=== PATIENT | male | born 1975 | race Caucasian/White ===

== ENCOUNTER 2023-04-19 15:29 | Inpatient (IN) ==
[2023-04-19] MEDS ORDERED: ALUMINUM/MAGNESIUM SUSP 30 ML UDC PO STA (15:51)
[2023-04-19 16:39] LABS: Basophils # (auto) 0.05 K/uL (0.00-0.20); Basophils % (auto) 0.4 %; Eosinophils % (auto) 0.8 %; Hematocrit (blood only) 48.4 % (42.0-52.0); Hemoglobin 16.4 g/dl (14.0-18.0); Immature Granulocytes # (auto) 0.04 K/uL (0.01-0.20); Immature Granulocytes % (auto) 0.3 %; Lymphocytes # (auto) 2.68 K/uL (1.20-3.40); Lymphocytes % (auto) 20.1 %; Mean Corpuscular Hgb Conc 33.9 g/dL (32.0-36.0); Mean Corpuscular Volume 94.3 fL (80.0-100.0); Mean Platelet Volume 10.4 fL (9.4-12.4); Monocytes # (auto) 1.18 K/uL (0.11-0.59); Monocytes % (auto) 8.9 %; Neutrophils # (auto) 9.28 K/uL (1.40-6.50); Neutrophils % (auto) 69.5 %; Platelet Count 249 K/uL (130-400); RDW Coefficient of Variation 12.3 % (11.5-14.5); RDW Standard Deviation 43.4 fL (36.4-46.3); Red Blood Count 5.13 M/uL (4.70-6.10); White Blood Count 13.33 K/ul (4.8-10.8)
--- NOTE | 2023-04-19 16:50 | Emergency Department Note ---
Impression & Plan Pancreatitis ED Provider Note CHIEF COMPLAINT: Gastric pain HISTORY OF PRESENTING ILLNESS: This 47-year-old male patient presents to the emergency department for evaluation of epigastric abdominal pain that started abruptly at midnight. He is also having bloating along with the pain. Symptoms have not improved throughout the day. No nausea or vomiting. He had a normal bowel movement today with no change in the symptoms. Was able to eat yogurt and pretzels this morning, but has not eaten anything else. He denies any reflux symptoms. Has not taken any reflux medication or antacids. Denies chest pain or shortness of breath. Rates his discomfort as 5/10. He had [employer] 2 days ago, but had not symptoms after the [employer]. Had tomato soup, grilled cheese, and 1 glass of wine last night that he typically eats/drinks without problems. No other changes in his diet or activity recently. Denies fevers, cough, or URI symptoms. Denies urinary symptoms. Denies any recent changes in his BMs and denies any diarrhea or constipation. Has not taken anything for the symptoms yet. Has a history of HTN, but no other heart problems. Denies family history of heart problems. No history of abdominal problems other than fatty liver. ALT was 115 in June 2022 with other LFTs normal. His RUQ US at that time showed hepatic steatosis, but otherwise normal. Had a colonoscopy in 2021 that was normal. No previous EGD. Has never had pancreatitis before. He drinks 2-3 glasses of wine or beer a week. No more than 2 a day on holidays or special occasions. Had 2 glasses of wine on Sat and 1 glass of wine on . He has never had elevated triglycerides before. REVIEW OF SYSTEMS: See HPI for pertinent positives and pertinent negatives. ALLERGIES: Bactrim MEDICATIONS: Losartan, antihistamines prn (usually in the spring), CPAP machine PAST MEDICAL HISTORY: HTN, allergic rhinitis, sleep apnea, fatty liver PHYSICAL EXAM: VITALS: Vitals are noted on the nurse's note and reviewed by myself. GENERAL: Non toxic, no acute distress, non-diaphoretic. SKIN: Capillary refill <2 sec. EYES: PERRLA. EOMI. Conjunctivae without injection, sclerae without icterus. NOSE: Patent without discharge. MOUTH: Mucous membranes moist. Uvula midline. Airway patent. NECK: Supple without nuchal rigidity. HEART: Regular rate and rhythm without murmurs gallops or rubs. LUNGS: Clear to auscultation bilaterally without wheezes, rales or rhonchi. No retractions or accessory muscle use. ABDOMEN: Positive bowel sounds x 4. Normal tympanic percussion. Soft, tender to the palpation mainly in the epigastric area, but also mild right upper quadrant tenderness. No masses or organomegaly. No CVA tenderness. Plunkett sign negative. No guarding or rebound tenderness. No focal RLQ or LLQ tenderness. MUSCULOSKELETAL: No gross musculoskeletal defects. NEURO: Patient was alert and oriented. No focal neurological deficits. DIFFERENTIAL DIAGNOSIS: Differential diagnosis includes hepatitis, pancreatitis, cholecystitis, cholelithiasis, appendicitis, kidney stone, pyelonephritis, UTI, gastritis, gastroenteritis, mesenteric adenitis, obstruction, constipation, hernia, abdominal abscess, perforation, diverticulitis, IBD, ischemic colitis, abdominal aortic aneurysm, testicular torsion, prostatitis, or others. ED COURSE AND MEDICAL DECISION MAKING: MONITOR: Continuous pin sorter and bagger: Order was placed for continuous pin sorter and bagger. Patient was placed on the pin sorter and bagger and continuous pulse ox. Patient was noted to be in normal sinus rhythm at an initial rate of 78 bpm per my interpretation. EKG: EKG was interpreted by myself as normal sinus rhythm at 69 bpm with no acute ST or T wave changes. MEDICATIONS GIVEN: 1 L normal saline solution bolus. GI cocktail. Pepcid 20 mg IV. Tylenol 1000 mg p.o. Toradol 10 mg IV. INTERPRETATION OF LABS: I interpreted the labs with full lab results as below in the lab section of this note. White blood cell count elevated at 13.33. Hemoglobin normal at 16.4. Platelet count normal at 249. ALT elevated at 66, but this is improved from 115 and June 2022. CMP otherwise normal. High- sensitivity troponin x 2 were normal. Lipase was elevated at 893. Urinalysis was negative. INTERPRETATION OF IMAGING: Imaging studies were interpreted by myself and read by radiology as per the imaging section of this note. Chest x-ray was negative for acute cardiopulmonary etiology. CT scan of the abdomen pelvis with IV contrast showed findings compatible with pancreatitis with reactive duodenal wall thickening and fat stranding. No acute peripancreatic collections or necrosis is seen. Primary duodenitis is considered less likely. EXTERNAL RECORDS REVIEWED: I reviewed the patient's laboratory studies on his phone from June 2022 with an ALT of 115, but otherwise normal LFTs. His triglycerides and cholesterol panel were normal at that time as well. Right upper quadrant ultrasound in June 2022 showed hepatic steatosis, but otherwise normal. CONSULTATIONS: On-call hospitalist MDM SUMMARY: I examined the patient. An IV lock was placed and labs were drawn. EKG and high-sensitivity troponin x 2 were negative and I do not suspect ACS. Chest x- ray was negative. Patient was given a GI cocktail and IV Pepcid without improvement of his symptoms. He was then given IV Tylenol and Toradol with improvement of his symptoms, but not resolution of his symptoms. He declined any additional pain medication while in the emergency department. He was hydrated with 1 L normal saline solution bolus. ALT was elevated, but improved from June 2022. White blood cell count elevated at 13.33, lipase was elevated at [address] scan was consistent with acute pancreatitis. No evidence for gallstones or gallbladder etiology on the CT scan of the abdomen and pelvis. The patient drinks wine socially and with dinners 2- 4 times a week. Lipid panel was normal in June 2022. The patient will require admission for further evaluation and treatment of his acute pancreatitis. I spoke with the on-call hospitalist who agreed to admit the patient for further management. Please refer to their dictation for further details. The patient's care was transferred in stable condition. DIAGNOSIS: Acute pancreatitis Past Med/Surg History Social History (System 03/05/22 @ 10:37 by Tonya Ramirez) Smoking Status: Never smoker Hx Alcohol Use: Yes Alcohol type: beer and wine Hx Substance Use: No Preferred Language: Turkmen Communication Ability: Effective Vineyardist Required: No Beliefs That Will Affect Care: None Current Living Situation: Family Other Information That Helps Us Care for You: No Feels Safe at Home: Yes Safety Concerns: Feels Safe At This Time Assistive Devices: CPAP and Glasses Allergies Allergies Allergy/AdvReac Type Severity Reaction Status Date / Time bactrim Allergy Unknown Rash Uncoded 03/05/22 10:37 Home Meds Home Medications Medication Instructions Recorded Confirmed fexofenadine 180 mg tablet 180 mg PO PRN allergies 02/05/22 04/19/23 losartan 100 mg tablet 100 mg PO QAM 02/05/22 04/19/23 doxycycline hyclate 100 mg capsule 100 mg PO DIRECTED PRN Other 04/19/23 04/19/23 psyllium 1 packet PO DIRECTED 04/19/23 04/19/23 Previous Rx's Medication Instructions Recorded Auto Titrating CPAP #1 ea 02/14/22 Results & Data (ED) Vital Signs Vital Signs - 24 hr 04/19/23 15:34 04/19/23 17:29 Temperature 36.6 C 36.6 C Temperature Source Temporal Artery Scan Temporal Artery Scan Pulse Rate 87 Respiratory Rate 20 20 Respiratory Effort / Characteristics Non-Labored Spontaneous Non-Labored Spontaneous Respiratory Depth Normal Normal Blood Pressure 164/85 H Blood Pressure [Right Arm] 124/75 Blood Pressure Mean 111 Blood Pressure Mean [Right Arm] 91 Blood Pressure Position [Right Arm] Semi-fowlers Pulse Oximetry 99 99 Oxygen Delivery Method Room Air Room Air Sepsis Recent Fever Within 48 Hours No Sepsis New/Unexplained Change in Mental Status No Sepsis Action Taken by Nursing No Action Required Laboratory Data 04/19/23 16:20 04/19/23 16:20 Lab Results 04/19/23 04/19/23 04/19/23 Range/Units 16:20 17:18 18:27 WBC 13.33 H (4.8-10.8) K/ul RBC 5.13 (4.70-6.10) M/uL Hgb 16.4 (14.0-18.0) g/dl Hct 48.4 (42.0-52.0) % MCV 94.3 (80.0-100.0) fL MCH 32.0 (25.0-34.0) pg MCHC 33.9 (32.0-36.0) g/dL RDW Std Deviation 43.4 (36.4-46.3) fL RDW Coeff of Eduardo 12.3 (11.5-14.5) % Plt Count 249 (130-400) K/uL MPV 10.4 (9.4-12.4) fL Immature Gran % (Auto) 0.3 % Neut % (Auto) 69.5 % Lymph % (Auto) 20.1 % [place] % (Auto) 8.9 % Eos % (Auto) 0.8 % Baso % (Auto) 0.4 % Neut # (Auto) 9.28 H (1.40-6.50) K/uL Lymph # (Auto) 2.68 (1.20-3.40) K/uL [place] # (Auto) 1.18 H (0.11-0.59) K/uL Eos # (Auto) 0.10 (0.00-0.50) K/uL Baso # (Auto) 0.05 (0.00-0.20) K/uL Immature Gran # (Auto) 0.04 (0.01-0.20) K/uL Sodium 139 (136-145) mmol/L Potassium 3.9 (3.5-5.1) mmol/L Chloride 101 (98-107) mmol/L Carbon Dioxide 30 (21-32) mmol/L Anion Gap 8 (3-11) BUN 10 (6-23) mg/dl Creatinine 0.84 (0.6-1.4) mg/dl Est Cr Clr Drug Dosing 111.0 ml/min Est GFR ( Amer) 120.0 ml/min Est GFR (Non-Af Amer) 103.5 ml/min BUN/Creatinine Ratio 11.9 (10-20) Glucose 89 (70-99(Fasting)) mg/dl Calcium 9.5 (8.6-10.3) mg/dl Total Bilirubin 0.9 (0.2-1.0) mg/dl AST 31 (13-39) U/L ALT 66 H (7-52) U/L Alkaline Phosphatase 68 (34-104) U/L Troponin I High Sens 4.6 3.7 (0-20) pg/ml Total Protein 8.2 (6.0-8.3) gm/dl Albumin 4.9 (3.4-5.0) gm/dl Globulin 3.3 (2.5-4.0) gm/dl Albumin/Globulin Ratio 1.5 (0.9-2) Lipase 893 H (11-82) U/L Urine Color Yellow Urine Appearance Clear (Clear) Urine pH 7.5 (4.5-7.5) Ur Specific [place] 1.020 (1.000-1.030) Urine Protein Negative (Negative) Urine Glucose (UA) Negative (Negative) Urine Ketones Negative (Negative) Urine Blood Negative (Negative) Urine Nitrite Negative (Negative) Urine Bilirubin Negative (Negative) Urine Urobilinogen Negative (Negative) Ur Leukocyte Esterase Negative (Negative) Administered Medications Acetaminophen (Acetaminophen 325 Mg Tab) 650 mg PO Q4H PRN PRN Reason: pain/fever Stop: 05/19/23 22:18 Last Admin: 04/19/23 23:02 Dose: 650 mg Documented By: ELODIA Enoxaparin Sodium (Enoxaparin Inj 40 Mg/0.4 Ml Syr) 40 mg SQ HS RIMA Stop: 05/19/23 22:18 Last Admin: 04/19/23 23:03 Dose: 40 mg Documented By: ELODIA Famotidine 20 mg/ Syringe 5 mls @ 2.5 mls/min IV BID RIMA Stop: 05/19/23 22:18 Last Admin: 04/19/23 23:03 Dose: 2.5 mls/min Documented By: ELODIA Lactated Ringer's (Lr) 1,000 mls @ 200 mls/hr IV .Q5H RIMA Stop: 05/19/23 22:18 Last Admin: 04/19/23 22:30 Dose: 200 mls/hr Documented By: ELODIA Discontinued Medications Acetaminophen (Acetaminophen 500 Mg Tab) 1,000 mg PO NOW STA Stop: 04/19/23 17:15 Last Admin: 04/19/23 17:58 Dose: 1,000 mg Documented By: SONAL Al Hydrox/Mg Hydrox/Simethicone (Aluminum/Magnesium Susp 30 Ml Udc) 15 ml PO NOW STA Stop: 04/19/23 15:52 Last Admin: 04/19/23 16:24 Dose: 15 ml Documented By: SRL Hydromorphone HCl (Hydromorphone Inj 0.5 Mg/0.5 Ml Syr) 0.5 mg IV NOW STA Stop: 04/19/23 21:02 Last Admin: 04/19/23 21:44 Dose: 0.5 mg Documented By: HALIMA Sodium Chloride (Nss) 1,000 mls @ 999 mls/hr IV .Q1H1M ONE Stop: 04/19/23 18:14 Last Infusion: 04/19/23 19:08 Dose: Infused Documented By: Admin: 04/19/23 17:58 Dose: 999 mls/hr Documented By: SONAL Famotidine (Pepcid 20mg Iv Push) 20 mg in 5 mls @ 2.5 mls/min IV NOW STA Stop: 04/19/23 17:15 Last Admin: 04/19/23 17:58 Dose: 2.5 mls/min Documented By: CAW Ioversol (Optiray 320 500ml) 87 ml IV ONCE ONE Stop: 04/19/23 18:04 Last Admin: 04/19/23 18:03 Dose: 87 ml Documented By: JAKY Ketorolac Tromethamine (Ketorolac Tromethamine 15 Mg/Ml Vial) 10 mg IV NOW ONE Stop: 04/19/23 18:36 Last Admin: 04/19/23 18:54 Dose: 10 mg Documented By: HALIMA Imaging Data Radiologist's Impression: Abdomen/Pelvis CT 04/19/23 17:14 CT abd pelvis IV con only CLINICAL HISTORY: epigastric and RUQ pain TECHNIQUE: Helical axial images of the abdomen and pelvis were obtained and displayed. Automated dose lowering techniques and/or adjustment according to patient size were utilized for this exam. This exam was performed with intravenous contrast. CT DOSE: 961.54 mGy.cm COMPARISON: None available at the time of this dictation. FINDINGS: Lower chest: No acute abnormality. Liver: Unremarkable. No focal lesions are seen. Gallbladder and biliary tree: No calcified gallstones. Normal caliber wall. No intra- or extrahepatic biliary ductal dilation. Pancreas: There is questionable minimal heterogeneity of the pancreatic head. Soft tissue stranding is seen about the pancreatic head but not the body or tail. Spleen: Unremarkable. Adrenals: Unremarkable. Kidneys and ureters: Unremarkable. Bladder: Unremarkable. Reproductive organs: Unremarkable. Bowel: The appendix is normal. Duodenal wall thickening is seen. Lymph nodes Retroperitoneal: Subcentimeter lymph nodes are noted. Pelvic: Unremarkable. Mesenteric: Unremarkable. Peritoneum: Fat stranding is seen in the right upper quadrant extending around the splenic flexure, duodenum, and pancreatic head. No drainable fluid collections are seen. No pneumoperitoneum. Vessels: Atherosclerotic calcifications are seen. Abdominal wall: Unremarkable. Bones: Degenerative changes in the visualized spine. IMPRESSION: Findings are compatible with history of pancreatitis with reactive duodenal wall thickening and fat stranding. No acute peripancreatic collections or necrosis is seen. Primary duodenitis is considered less likely. ACT 112: Negative or not required by law. Electronically signed by: Joe Sepulveda M.D. 04/19/2023 7:03 PM Chest X-Ray 04/19/23 17:14 XR chest 1V portable CLINICAL HISTORY: upper abdominal pain TECHNIQUE: Single frontal radiograph of the chest was obtained. Comparison: None available at the time of this dictation. FINDINGS: No lines and tubes are seen. The cardiomediastinal silhouette is normal. The lungs are clear. No evidence of pleural effusion or pneumothorax. IMPRESSION: No acute chest disease. ACT 112: Negative or not required by law. Electronically signed by: Joe Sepulveda M.D. 04/19/2023 6:05 PM Discharge Plan Visit Data Chief Complaint: Abdominal Pain Stated Complaint: GASTRIC PAIN ED Provider: Cayetano Kendrick ED Midlevel Provider: Billie Obando Discharge Problem: Pancreatitis Patient Disposition: Admitted As Inpatient Condition: Good Discharge Instructions Interventions: ED Discharge Assessment Last Done: 04/19/23 22:11 Discharge Problem: Pancreatitis Qualifiers: Chronicity: acute Pancreatitis type: unspecified pancreatitis type Acute pancreatitis complication: no infection or necrosis Qualified Code(s): K85.90 - Acute pancreatitis without necrosis or infection, unspecified
[2023-04-19 16:59] LABS: BUN Creatinine Ratio 11.9 (10-20); Calcium 9.5 mg/dl (8.6-10.3); Est GFR (Non-African American) 103.5 ml/min; Potassium 3.9 mmol/L (3.5-5.1)
[2023-04-19 17:03] LABS: Troponin I High Sensitivity 4.6 pg/ml (0-20)
[2023-04-19] MEDS ORDERED: SODIUM CHLORIDE 0.9% 1,000 ML IV ONE (17:14)
[2023-04-19] MEDS ORDERED: FAMOTIDINE 20MG IV PUSH 20 MG/5 ML SYR IV STA (17:14)
[2023-04-19] MEDS ORDERED: ACETAMINOPHEN 500 MG TAB PO STA (17:14)
[2023-04-19 17:23] LABS: Albumin Globulin Ratio 1.5 (0.9-2); Albumin Level 4.9 gm/dl (3.4-5.0); Bilirubin,Total 0.9 mg/dl (0.2-1.0); Globulin 3.3 gm/dl (2.5-4.0); Total Protein 8.2 gm/dl (6.0-8.3)
[2023-04-19 17:37] LABS: Appearance Urine Clear (Clear); Bilirubin Urine Negative (Negative); Blood Urine Negative (Negative); Color Urine Yellow; Glucose Urine UA Negative (Negative); Ketones Urine Negative (Negative); Leukocyte Esterase Urine Negative (Negative); Nitrite Urine Negative (Negative); Protein Urine Negative (Negative); Urobilinogen Urine Negative (Negative); pH Urine 7.5 (4.5-7.5)
[2023-04-19] MEDS ORDERED: OPTIRAY 320 500ml IV ONE (18:03)
--- NOTE | 2023-04-19 18:07 | XRay Report ---
XR chest 1V portable CLINICAL HISTORY: upper abdominal pain TECHNIQUE: Single frontal radiograph of the chest was obtained. Comparison: None available at the time of this dictation. FINDINGS: No lines and tubes are seen. The cardiomediastinal silhouette is normal. The lungs are clear. No evid ence of pleural effusion or pneumothorax. IMPRESSION: No acute chest disease. ACT 112: Negative or not required by law. Electronically signed by: Joe Sepulveda M.D. 04/19/2023 6:05 PM
[2023-04-19] MEDS ORDERED: KETOROLAC TROMETHAMINE 15 MG/ML VIAL IV ONE (18:35)
--- NOTE | 2023-04-19 19:06 | CT Scan Report ---
CT abd pelvis IV con only CLINICAL HISTORY: epigastric and RUQ pain TECHNIQUE: Helical axial images of the abdomen and pelvis were obtained and displayed. Automated dose lowering techniques and/or adjustment according to patient size were utilized for this exam. This e xam was performed with intravenous contrast. CT DOSE: 961.54 mGy.cm COMPARISON: None available at the time of this dictation. FINDINGS: Lower chest: No acute abnormality. Liver: Unremarkable. No focal lesions are seen. Gallbladder and biliary tree: No calcified gallstones. Normal caliber wall. No intra- or extrahepatic biliary ductal dilation. Pancreas: There is questionable minimal heterogeneity of the pancreatic head. Soft tissue stranding i s seen about the pancreatic head but not the body or tail. Spleen: Unremarkable. Adrenals: Unremarkable. Kidneys and ureters: Unremarkable. Bladder: Unremarkable. Reproductive organs: Unremarkable. Bowel: The appendix is normal. Duodenal wall thickening is seen. Lymph nodes Retroperitoneal: Subcentimeter lymph nodes are noted. Pelvic: Unremarkable. Mesenteric: Unremarkable. Peritoneum: Fat stranding is seen in the right upper quadrant extending around the splenic flexure, d uodenum, and pancreatic head. No drainable fluid collections are seen. No pneumoperitoneum. Vessels: Atherosclerotic calcifications are seen. Abdominal wall: Unremarkable. Bones: Degenerative changes in the visualized spine. IMPRESSION: Findings are compatible with history of pancreatitis with reactive duodenal wall thickening and fat s tranding. No acute peripancreatic collections or necrosis is seen. Primary duodenitis is considered l ess likely. ACT 112: Negative or not required by law. Electronically signed by: Joe Sepulveda M.D. 04/19/2023 7:03 PM
[2023-04-19] MEDS ORDERED: HYDROmorphone INJ 0.5 MG/0.5 ML SYR IV STA (21:01)
--- NOTE | 2023-04-19 21:04 | History & Physical Report ---
Date of Service April 19, 2023 Assessment & Plan (1) Pancreatitis: Plan: 47-year-old male with past medical history significant for obstructive sleep apnea on CPAP, hypertension, fatty liver, history of MRSA infection, seasonal allergies presents with epigastric abdominal pain started last night and found to have pancreatitis Acute pancreatitis Elevated lipase in 800s CT scan findings compatible with pancreatitis No gallstones on CAT scan LFTs okay except for ALT 66 Etiology unclear Will check lipid profile Placing on aggressive IV fluids LR@ 200 mill per hour N.p.o. IV antiemetics as needed IV pain meds as needed GI consult in a.m. Obstructive sleep apnea CPAP nightly Hypertension On losartan Will monitor DVT prophylaxis Lovenox Disposition Medical floor Full code History of Present Illness Chief Complaint: Abdominal pain Primary Care Provider: Jose Carlos Bermudez MD 47-year-old male with past medical history significant for obstructive sleep apnea on CPAP, hypertension, fatty liver, history of MRSA infection, seasonal allergies presents with epigastric abdominal pain started last night. Patient says last night woke up with epigastric abdominal pain 5-10 severity, no radiation. And today morning the pain continued and was not getting better so came to the ER. No nausea or vomiting. Denies any chest pain or shortness of breath. Had normal bowel movement today. He had food on Saturday and had 2 glasses of wine. Last night he had tomato soup and grilled cheese and 1 glass of wine. Denies any runny nose or sore throat. No cough. No headaches. Currently resting comfortable hemodynamic stable. Not had this kind of abdominal pain before. Past medical history. As mentioned above Past surgical history. Dental surgery Social history. . No smoking. Alcohol 2-4 drinks per week. No drug use. Family history. Father had atrial fibrillation. Neurological disorder. Mother had hyperlipidemia, hypertension. Maternal grandfather had cirrhosis. Paternal g grandmother had dementia. Paternal grandmother had peripheral vascular dis ease. Paternal grandfather had TIA. Allergies Allergy/AdvReac Type Severity Reaction Status Date / Time bactrim Allergy Unknown Rash Uncoded 03/05/22 10:37 Home Medications Medication Instructions Recorded Confirmed Type fexofenadine 180 mg tablet 180 mg PO PRN allergies 02/05/22 04/19/23 History losartan 100 mg tablet 100 mg PO QAM 02/05/22 04/19/23 History Auto Titrating CPAP #1 ea 02/14/22 02/14/22 Rx doxycycline hyclate 100 mg capsule 100 mg PO DIRECTED PRN Other 04/19/23 04/19/23 History psyllium 1 packet PO DIRECTED 04/19/23 04/19/23 History Past Med/Surg History Social History (System 03/05/22 @ 10:37 by Tonya Ramirez) Smoking Status: Never smoker Hx Alcohol Use: Yes Alcohol type: beer and wine Hx Substance Use: No Preferred Language: Icelandic Communication Ability: Effective Box Office Manager Required: No Beliefs That Will Affect Care: None Current Living Situation: Family Other Information That Helps Us Care for You: No Feels Safe at Home: Yes Safety Concerns: Feels Safe At This Time Assistive Devices: CPAP and Glasses Review of Systems Review of Systems: All systems reviewed & are unremarkable except as noted in HPI & below Physical Exam Physical Exam: General- Not in distress Head- atraumatic Eyes- PERRL. ENT- oropharynx clear Neck- supple, no JVD. Lungs- clear to auscultation no wheezing or crackles. Heart- regular rhythm; no murmur, no gallop. Abdomen- normal bowel sounds, soft, epigastric tenderness present. no distension. Extremities- no pretibial edema, no erythema seen. Neuro- alert, oriented x 3; PERRL, no facial palsy; no dysarthria; moves ext remities. Skin- warm & dry Results & Data Results & Data Vital Signs (Past 12 Hours) Vital Signs Temp Pulse Resp BP BP Pulse Ox O2 Del Method 04/19/23 17:29 36.6 C 20 124/75 99 Room Air 04/19/23 15:34 36.6 C 87 20 164/85 H 99 Room Air Diagnostic Findings Laboratory Results WBC 13.33 K/ul (4.8-10.8) H 04/19/23 16:20 RBC 5.13 M/uL (4.70-6.10) 04/19/23 16:20 Hgb 16.4 g/dl (14.0-18.0) 04/19/23 16:20 Hct 48.4 % (42.0-52.0) 04/19/23 16:20 MCV 94.3 fL (80.0-100.0) 04/19/23 16:20 MCH 32.0 pg (25.0-34.0) 04/19/23 16:20 MCHC 33.9 g/dL (32.0-36.0) 04/19/23 16:20 RDW Std Deviation 43.4 fL (36.4-46.3) 04/19/23 16:20 RDW Coeff of Eduardo 12.3 % (11.5-14.5) 04/19/23 16:20 Plt Count 249 K/uL (130-400) 04/19/23 16:20 MPV 10.4 fL (9.4-12.4) 04/19/23 16:20 Immature Gran % (Auto) 0.3 % 04/19/23 16:20 Neut % (Auto) 69.5 % 04/19/23 16:20 Lymph % (Auto) 20.1 % 04/19/23 16:20 [place] % (Auto) 8.9 % 04/19/23 16:20 Eos % (Auto) 0.8 % 04/19/23 16:20 Baso % (Auto) 0.4 % 04/19/23 16:20 Neut # (Auto) 9.28 K/uL (1.40-6.50) H 04/19/23 16:20 Lymph # (Auto) 2.68 K/uL (1.20-3.40) 04/19/23 16:20 [place] # (Auto) 1.18 K/uL (0.11-0.59) H 04/19/23 16:20 Eos # (Auto) 0.10 K/uL (0.00-0.50) 04/19/23 16:20 Baso # (Auto) 0.05 K/uL (0.00-0.20) 04/19/23 16:20 Immature Gran # (Auto) 0.04 K/uL (0.01-0.20) 04/19/23 16:20 Sodium 139 mmol/L (136-145) 04/19/23 16:20 Potassium 3.9 mmol/L (3.5-5.1) 04/19/23 16:20 Chloride 101 mmol/L (98-107) 04/19/23 16:20 Carbon Dioxide 30 mmol/L (21-32) 04/19/23 16:20 Anion Gap 8 (3-11) 04/19/23 16:20 BUN 10 mg/dl (6-23) 04/19/23 16:20 Creatinine 0.84 mg/dl (0.6-1.4) 04/19/23 16:20 Est Cr Clr Drug Dosing 111.0 ml/min 04/19/23 16:20 Est GFR ( Amer) 120.0 ml/min 04/19/23 16:20 Est GFR (Non-Af Amer) 103.5 ml/min 04/19/23 16:20 BUN/Creatinine Ratio 11.9 (10-20) 04/19/23 16:20 Glucose 89 mg/dl (70-99(Fasting)) 04/19/23 16:20 Calcium 9.5 mg/dl (8.6-10.3) 04/19/23 16:20 Total Bilirubin 0.9 mg/dl (0.2-1.0) 04/19/23 16:20 AST 31 U/L (13-39) 04/19/23 16:20 ALT 66 U/L (7-52) H 04/19/23 16:20 Alkaline Phosphatase 68 U/L (34-104) 04/19/23 16:20 Troponin I High Sens 3.7 pg/ml (0-20) 04/19/23 18:27 Total Protein 8.2 gm/dl (6.0-8.3) 04/19/23 16:20 Albumin 4.9 gm/dl (3.4-5.0) 04/19/23 16:20 Globulin 3.3 gm/dl (2.5-4.0) 04/19/23 16:20 Albumin/Globulin Ratio 1.5 (0.9-2) 04/19/23 16:20 Lipase 893 U/L (11-82) H 04/19/23 16:20 Urine Color Yellow 04/19/23 17:18 Urine Appearance Clear (Clear) 04/19/23 17:18 Urine pH 7.5 (4.5-7.5) 04/19/23 17:18 Ur Specific [place] 1.020 (1.000-1.030) 04/19/23 17:18 Urine Protein Negative (Negative) 04/19/23 17:18 Urine Glucose (UA) Negative (Negative) 04/19/23 17:18 Urine Ketones Negative (Negative) 04/19/23 17:18 Urine Blood Negative (Negative) 04/19/23 17:18 Urine Nitrite Negative (Negative) 04/19/23 17:18 Urine Bilirubin Negative (Negative) 04/19/23 17:18 Urine Urobilinogen Negative (Negative) 04/19/23 17:18 Ur Leukocyte Esterase Negative (Negative) 04/19/23 17:18 Impressions Abdomen/Pelvis CT 04/19/23 17:14 CT abd pelvis IV con only CLINICAL HISTORY: epigastric and RUQ pain TECHNIQUE: Helical axial images of the abdomen and pelvis were obtained and displayed. Automated dose lowering techniques and/or adjustment according to patient size were utilized for this exam. This exam was performed with intravenous contrast. CT DOSE: 961.54 mGy.cm COMPARISON: None available at the time of this dictation. FINDINGS: Lower chest: No acute abnormality. Liver: Unremarkable. No focal lesions are seen. Gallbladder and biliary tree: No calcified gallstones. Normal caliber wall. No intra- or extrahepatic biliary ductal dilation. Pancreas: There is questionable minimal heterogeneity of the pancreatic head. Soft tissue stranding is seen about the pancreatic head but not the body or tail. Spleen: Unremarkable. Adrenals: Unremarkable. Kidneys and ureters: Unremarkable. Bladder: Unremarkable. Reproductive organs: Unremarkable. Bowel: The appendix is normal. Duodenal wall thickening is seen. Lymph nodes Retroperitoneal: Subcentimeter lymph nodes are noted. Pelvic: Unremarkable. Mesenteric: Unremarkable. Peritoneum: Fat stranding is seen in the right upper quadrant extending around the splenic flexure, duodenum, and pancreatic head. No drainable fluid collections are seen. No pneumoperitoneum. Vessels: Atherosclerotic calcifications are seen. Abdominal wall: Unremarkable. Bones: Degenerative changes in the visualized spine. IMPRESSION: Findings are compatible with history of pancreatitis with reactive duodenal wall thickening and fat stranding. No acute peripancreatic collections or necrosis is seen. Primary duodenitis is considered less likely. ACT 112: Negative or not required by law. Electronically signed by: Joe Sepulveda M.D. 04/19/2023 7:03 PM Chest X-Ray 04/19/23 17:14 XR chest 1V portable CLINICAL HISTORY: upper abdominal pain TECHNIQUE: Single frontal radiograph of the chest was obtained. Comparison: None available at the time of this dictation. FINDINGS: No lines and tubes are seen. The cardiomediastinal silhouette is normal. The lungs are clear. No evidence of pleural effusion or pneumothorax. IMPRESSION: No acute chest disease. ACT 112: Negative or not required by law. Electronically signed by: Joe Sepulveda M.D. 04/19/2023 6:05 PM ECG Additional Comments: ECG. Normal sinus rhythm rate of 69. Code Status & VTE Plan VTE Prophylaxis Plan VTE Prophylaxis will be ordered: Yes
[2023-04-19] MEDS ORDERED: ONDANSETRON INJ 2 MG/ML 2 ML VIAL IV PRN (22:19)
[2023-04-19] MEDS ORDERED: HYDROmorphone INJ 0.5 MG/0.5 ML SYR IV PRN (22:19)
[2023-04-19] MEDS: LACTATED RINGER'S 1,000 ML IV SCH (22:30)
[2023-04-19] MEDS: ACETAMINOPHEN 325 MG TAB PO PRN (23:02)
[2023-04-19] MEDS: ENOXAPARIN INJ 40 MG/0.4 ML SYR SQ SCH (23:03)
[2023-04-19] MEDS: FAMOTIDINE 20 MG in SYRINGE 3 ML IV SCH (23:03)
[2023-04-20] MEDS: LACTATED RINGER'S 1,000 ML IV SCH ×4 (03:22→19:48)
[2023-04-20 06:31] LABS: Albumin Level 3.4 gm/dl (3.4-5.0); BUN Creatinine Ratio 11.5 (10-20); Bilirubin Direct 0.1 mg/dl (0-0.2); Bilirubin,Total 0.9 mg/dl (0.2-1.0); Calcium 8.3 mg/dl (8.6-10.3); Chol HDL Ratio 3.3 (0-5); Creatinine Clr Calc Pharmacy 107.2 ml/min; Est GFR (African American) 118.3 ml/min; Est GFR (Non-African American) 102.1 ml/min; Magnesium 1.8 mg/dl (1.7-2.4); Total Protein 5.6 gm/dl (6.0-8.3)
--- NOTE | 2023-04-20 06:57 | Electrocardiogram Report ---
Test Reason : Blood Pressure : / mmHG Vent. Rate : 069 BPM Atrial Rate : 069 BPM P-R Int : 146 ms QRS Dur : 082 ms QT Int : 352 ms P-R-T Axes : 073 077 060 degrees QTc Int : 377 ms Normal sinus rhythm Cannot rule out Anterior infarct , age undetermined Abnormal ECG No previous ECGs available Confirmed by Zion Carlton ([id number]) on 04/20/2023 6:56:59 AM Referred By: REFERRED SELF Confirmed By:Zion Carlton
[2023-04-20 07:54] LABS: Hematocrit (blood only) 38.6 % (42.0-52.0); Hemoglobin 13.3 g/dl (14.0-18.0); Mean Corpuscular Hemoglobin 32.6 pg (25.0-34.0); Mean Corpuscular Hgb Conc 34.5 g/dL (32.0-36.0); Mean Corpuscular Volume 94.6 fL (80.0-100.0); Platelet Count 197 K/uL (130-400); RDW Coefficient of Variation 12.3 % (11.5-14.5); RDW Standard Deviation 43.1 fL (36.4-46.3); Red Blood Count 4.08 M/uL (4.70-6.10); White Blood Count 9.93 K/ul (4.8-10.8)
[2023-04-20 07:55] LABS: Basophils # (auto) 0.03 K/uL (0.00-0.20); Basophils % (auto) 0.3 %; Eosinophils # (auto) 0.15 K/uL (0.00-0.50); Eosinophils % (auto) 1.5 %; Immature Granulocytes # (auto) 0.03 K/uL (0.01-0.20); Immature Granulocytes % (auto) 0.3 %; Lymphocytes # (auto) 2.93 K/uL (1.20-3.40); Lymphocytes % (auto) 29.5 %; Monocytes # (auto) 1.25 K/uL (0.11-0.59); Monocytes % (auto) 12.6 %; Neutrophils # (auto) 5.54 K/uL (1.40-6.50); Neutrophils % (auto) 55.8 %
[2023-04-20] MEDS: ACETAMINOPHEN 325 MG TAB PO PRN (08:55)
[2023-04-20] MEDS ORDERED: LOSARTAN POTASSIUM 50 MG TAB PO SCH (09:00)
[2023-04-20] MEDS: FAMOTIDINE 20 MG in SYRINGE 3 ML IV SCH ×2 (11:57→19:48)
--- NOTE | 2023-04-20 16:42 | Hospitalist Progress Note ---
Date of Service April 20, 2023 Assessment & Plan (1) Pancreatitis: Plan: 47-year-old male with past medical history significant for obstructive sleep apnea on CPAP, hypertension, fatty liver, history of MRSA infection, seasonal allergies presents with epigastric abdominal pain started last night and found to have pancreatitis Acute pancreatitis Elevated lipase in 800s - trended down CT scan findings compatible with pancreatitis No gallstones on CAT scan LFTs okay except for ALT 66 Etiology unclear lipid profile obtained - TG 135, CH 154, LDL 80 Started on aggressive IV fluids LR@ 200 mill per hour -> decrease to 150 ml/hr N.p.o. -> advance to clear liquids IV antiemetics as needed IV pain meds as needed GI consulted Obstructive sleep apnea CPAP nightly Hypertension On losartan Will monitor DVT prophylaxis Lovenox Disposition Medical floor Full code Admission and Anticipated Discharge Date Admission Date: April 19, 2023 Subjective Pt seen in follow up of pancreatitis Abd. pain seems to be improving, no n/v no fever, chills, chest pain, shortness of breath Will advance diet to clear liquids and will cont. to closely monitor. cont. IVF and analgesia prn Review of Systems Review of Systems: All systems reviewed & are unremarkable except as noted in Subjective Physical Exam Physical Exam: General- WD/WN in NAD Head- atraumatic Eyes- PERRL. ENT- oropharynx clear Neck- supple, no JVD. Lungs- clear to auscultation no wheezing or crackles. Heart- regular rhythm; no murmur, no gallop. Abdomen- normal bowel sounds, soft, epigastric tenderness present. no distension. Extremities- no erythema seen. moves extremities Neuro- alert, oriented x 3; PERRL, no facial palsy; no dysarthria; moves extremities. Skin- warm & dry Results & Data Results & Data Vital Signs (Past 12 Hours) Vital Signs Temp Pulse Resp BP Pulse Ox O2 Del Method 04/20/23 14:41 36.5 C 77 17 136/79 98 Room Air 04/20/23 07:38 36.6 C 67 16 128/75 98 Room Air Laboratory Results 04/20/23 04/19/23 04/19/23 Range/Units 05:30 18:27 17:18 WBC 9.93 (4.8-10.8) K/ul RBC 4.08 L (4.70-6.10) M/uL Hgb 13.3 L D (14.0-18.0) g/dl Hct 38.6 L (42.0-52.0) % MCV 94.6 (80.0-100.0) fL MCH 32.6 (25.0-34.0) pg MCHC 34.5 (32.0-36.0) g/dL RDW Std Deviation 43.1 (36.4-46.3) fL RDW Coeff of Eduardo 12.3 (11.5-14.5) % Plt Count 197 (130-400) K/uL MPV 11.0 (9.4-12.4) fL Immature Gran % (Auto) 0.3 % Neut % (Auto) 55.8 % Lymph % (Auto) 29.5 % [place] % (Auto) 12.6 % Eos % (Auto) 1.5 % Baso % (Auto) 0.3 % Neut # (Auto) 5.54 (1.40-6.50) K/uL Lymph # (Auto) 2.93 (1.20-3.40) K/uL [place] # (Auto) 1.25 H (0.11-0.59) K/uL Eos # (Auto) 0.15 (0.00-0.50) K/uL Baso # (Auto) 0.03 (0.00-0.20) K/uL Immature Gran # (Auto) 0.03 (0.01-0.20) K/uL Sodium 138 (136-145) mmol/L Potassium 4.0 (3.5-5.1) mmol/L Chloride 106 (98-107) mmol/L Carbon Dioxide 29 (21-32) mmol/L Anion Gap 3 (3-11) BUN 10 (6-23) mg/dl Creatinine 0.87 (0.6-1.4) mg/dl Est Cr Clr Drug Dosing 107.2 ml/min Est GFR ( Amer) 118.3 ml/min Est GFR (Non-Af Amer) 102.1 ml/min BUN/Creatinine Ratio 11.5 (10-20) Glucose 103 H (70-99(Fasting)) mg/dl Calcium 8.3 L (8.6-10.3) mg/dl Magnesium 1.8 (1.7-2.4) mg/dl Total Bilirubin 0.9 (0.2-1.0) mg/dl Direct Bilirubin 0.1 (0-0.2) mg/dl AST 20 (13-39) U/L ALT 43 (7-52) U/L Alkaline Phosphatase 52 (34-104) U/L Troponin I High Sens 3.7 (0-20) pg/ml Total Protein 5.6 L D (6.0-8.3) gm/dl Albumin 3.4 (3.4-5.0) gm/dl Globulin (2.5-4.0) gm/dl Albumin/Globulin Ratio (0.9-2) Triglycerides 135 (0-150) mg/dl Cholesterol 154 (0-200) mg/dl LDL Cholesterol, Calc 80 mg/dl VLDL Cholesterol, Calc 27 (0-30) mg/dl HDL Cholesterol 47 mg/dl Cholesterol/HDL Ratio 3.3 (0-5) Lipase 275 H (11-82) U/L Urine Color Yellow Urine Appearance Clear (Clear) Urine pH 7.5 (4.5-7.5) Ur Specific [place] 1.020 (1.000-1.030) Urine Protein Negative (Negative) Urine Glucose (UA) Negative (Negative) Urine Ketones Negative (Negative) Urine Blood Negative (Negative) Urine Nitrite Negative (Negative) Urine Bilirubin Negative (Negative) Urine Urobilinogen Negative (Negative) Ur Leukocyte Esterase Negative (Negative) 04/19/23 Range/Units 16:20 WBC 13.33 H (4.8-10.8) K/ul RBC 5.13 (4.70-6.10) M/uL Hgb 16.4 (14.0-18.0) g/dl Hct 48.4 (42.0-52.0) % MCV 94.3 (80.0-100.0) fL MCH 32.0 (25.0-34.0) pg MCHC 33.9 (32.0-36.0) g/dL RDW Std Deviation 43.4 (36.4-46.3) fL RDW Coeff of Eduardo 12.3 (11.5-14.5) % Plt Count 249 (130-400) K/uL MPV 10.4 (9.4-12.4) fL Immature Gran % (Auto) 0.3 % Neut % (Auto) 69.5 % Lymph % (Auto) 20.1 % [place] % (Auto) 8.9 % Eos % (Auto) 0.8 % Baso % (Auto) 0.4 % Neut # (Auto) 9.28 H (1.40-6.50) K/uL Lymph # (Auto) 2.68 (1.20-3.40) K/uL [place] # (Auto) 1.18 H (0.11-0.59) K/uL Eos # (Auto) 0.10 (0.00-0.50) K/uL Baso # (Auto) 0.05 (0.00-0.20) K/uL Immature Gran # (Auto) 0.04 (0.01-0.20) K/uL Sodium 139 (136-145) mmol/L Potassium 3.9 (3.5-5.1) mmol/L Chloride 101 (98-107) mmol/L Carbon Dioxide 30 (21-32) mmol/L Anion Gap 8 (3-11) BUN 10 (6-23) mg/dl Creatinine 0.84 (0.6-1.4) mg/dl Est Cr Clr Drug Dosing 111.0 ml/min Est GFR ( Amer) 120.0 ml/min Est GFR (Non-Af Amer) 103.5 ml/min BUN/Creatinine Ratio 11.9 (10-20) Glucose 89 (70-99(Fasting)) mg/dl Calcium 9.5 (8.6-10.3) mg/dl Magnesium (1.7-2.4) mg/dl Total Bilirubin 0.9 (0.2-1.0) mg/dl Direct Bilirubin (0-0.2) mg/dl AST 31 (13-39) U/L ALT 66 H (7-52) U/L Alkaline Phosphatase 68 (34-104) U/L Troponin I High Sens 4.6 (0-20) pg/ml Total Protein 8.2 (6.0-8.3) gm/dl Albumin 4.9 (3.4-5.0) gm/dl Globulin 3.3 (2.5-4.0) gm/dl Albumin/Globulin Ratio 1.5 (0.9-2) Triglycerides (0-150) mg/dl Cholesterol (0-200) mg/dl LDL Cholesterol, Calc mg/dl VLDL Cholesterol, Calc (0-30) mg/dl HDL Cholesterol mg/dl Cholesterol/HDL Ratio (0-5) Lipase 893 H (11-82) U/L Urine Color Urine Appearance (Clear) Urine pH (4.5-7.5) Ur Specific [place] (1.000-1.030) Urine Protein (Negative) Urine Glucose (UA) (Negative) Urine Ketones (Negative) Urine Blood (Negative) Urine Nitrite (Negative) Urine Bilirubin (Negative) Urine Urobilinogen (Negative) Ur Leukocyte Esterase (Negative) Medications Administered Current Inpatient Medications Acetaminophen (Acetaminophen 325 Mg Tab) 650 mg PO Q4H PRN PRN Reason: pain/fever Stop: 05/19/23 22:18 Last Admin: 04/20/23 08:55 Dose: 650 mg Enoxaparin Sodium (Enoxaparin Inj 40 Mg/0.4 Ml Syr) 40 mg SQ HS [facility] Stop: 05/19/23 22:18 Last Admin: 04/19/23 23:03 Dose: 40 mg Hydromorphone HCl (Hydromorphone Inj 0.5 Mg/0.5 Ml Syr) 0.5 mg IV Q3H PRN PRN Reason: Mod-Sev Pain (Scale 4-10) Stop: 05/03/23 22:18 Last Admin: 04/20/23 03:22 Dose: 0.5 mg Famotidine 20 mg/ Syringe 5 mls @ 2.5 mls/min IV BID [facility] Stop: 05/19/23 22:18 Last Admin: 04/20/23 11:57 Dose: 2.5 mls/min Lactated Ringer's (Lr) 1,000 mls @ 150 mls/hr IV .Q6H40M [facility] Stop: 05/19/23 22:18 Last Admin: 04/20/23 13:41 Dose: 150 mls/hr Losartan Potassium (Losartan Potassium 50 Mg Tab) 100 mg PO QAM [facility] Stop: 05/20/23 08:59 Last Admin: 04/20/23 08:47 Dose: 100 mg Ondansetron HCl (Ondansetron Inj 2 Mg/Ml 2 Ml Vial) 4 mg IV Q6H PRN PRN Reason: Nausea Stop: 05/19/23 22:18 (1) Pancreatitis Acute pancreatitis complication: no infection or necrosis Chronicity: acute Pancreatitis type: unspecified pancreatitis type Qualified Code(s): K85.90 - Acute pancreatitis without necrosis or infection, unspecified
[2023-04-20] MEDS: ENOXAPARIN INJ 40 MG/0.4 ML SYR SQ SCH (19:48)
[2023-04-21] MEDS: LACTATED RINGER'S 1,000 ML IV SCH ×2 (01:54→08:25)
[2023-04-21 07:09] LABS: Hematocrit (blood only) 37.7 % (42.0-52.0); Hemoglobin 13.3 g/dl (14.0-18.0); Mean Corpuscular Hemoglobin 32.3 pg (25.0-34.0); Mean Corpuscular Hgb Conc 35.3 g/dL (32.0-36.0); Mean Corpuscular Volume 91.5 fL (80.0-100.0); Mean Platelet Volume 10.9 fL (9.4-12.4); Platelet Count 183 K/uL (130-400); RDW Standard Deviation 40.8 fL (36.4-46.3); Red Blood Count 4.12 M/uL (4.70-6.10); White Blood Count 10.38 K/ul (4.8-10.8)
[2023-04-21 07:29] LABS: Albumin Globulin Ratio 1.3 (0.9-2); Albumin Level 3.5 gm/dl (3.4-5.0); BUN Creatinine Ratio 8.9 (10-20); Calcium 8.7 mg/dl (8.6-10.3); Creatinine Clr Calc Pharmacy 118.1 ml/min; Est GFR (African American) 123.1 ml/min; Est GFR (Non-African American) 106.2 ml/min; Globulin 2.6 gm/dl (2.5-4.0); Magnesium 1.7 mg/dl (1.7-2.4); Potassium 3.7 mmol/L (3.5-5.1); Total Protein 6.1 gm/dl (6.0-8.3)
[2023-04-21] MEDS: FAMOTIDINE 20 MG in SYRINGE 3 ML IV SCH (07:44)
--- NOTE | 2023-04-21 08:55 | Gastrointestinal Consultation ---
Date of Consultation April 21, 2023 Assessment & Plan (1) Pancreatitis: 47yo male admitted with pancreatitis. No obvious cause. Some ETOH use. Known fatty liver. Feeling much better and tolerating diet. Will arrange an outpatient EUS in 6-8 weeks to further evaluate the pancreas. History of Present Illness Reason for Consultation: pancreatitis Attending Physician: Darryl Dasilva MD History of Present Illness 47 yo male with fatty liver admitted with acute onset of abd pain found to have lab and imaging evidence of pancreatitis. No prior history or family history of pancreatitis. Occasional ETOH, denies excessive use or binge drinking. No new medications. No supplements. Treated with bowel rest, IVF hydration, PRN anti- emetics and pain meds. Allergies Allergy/AdvReac Type Severity Reaction Status Date / Time bactrim Allergy Unknown Rash Uncoded 03/05/22 10:37 Home Medications Medication Instructions Recorded Confirmed Type fexofenadine 180 mg tablet 180 mg PO PRN allergies 02/05/22 04/19/23 History losartan 100 mg tablet 100 mg PO QAM 02/05/22 04/19/23 History Auto Titrating CPAP #1 ea 02/14/22 02/14/22 Rx doxycycline hyclate 100 mg capsule 100 mg PO DIRECTED PRN Other 04/19/23 04/19/23 History psyllium 1 packet PO DIRECTED 04/19/23 04/19/23 History Patient History Social History (System 03/05/22 @ 10:37 by Tonya Ramirez) Smoking Status: Never smoker Hx Alcohol Use: Yes Alcohol type: beer and wine Hx Substance Use: No Preferred Language: Bengali Communication Ability: Effective Rating Officer Required: No Beliefs That Will Affect Care: None Current Living Situation: Family Other Information That Helps Us Care for You: No Feels Safe at Home: Yes Safety Concerns: Feels Safe At This Time Assistive Devices: CPAP and Glasses Review of Systems Review of Systems: All systems reviewed & are unremarkable except as noted in HPI & below Physical Exam Constitutional: WD/WN, vitals as above Eyes: PERRL, conjunctivae normal, anicteric sclerae Neck: trachea midline, no thyromegaly Respiratory: normal respiratory effort, lungs clear to auscultation Cardiovascular: RRR, no murmur, no edema Gastrointestinal (Abdomen): normal bowel sounds, soft, nontender, no hepato splenomegaly Musculoskeletal: no cyanosis or clubbing, extremities motor strength 5/5 Neurologic: CN's II-XI intact bilaterally Results & Data Vital Signs (Past 12 Hours) Vital Signs Temp Pulse Resp BP Pulse Ox O2 Del Method 04/21/23 07:17 36.7 C 71 16 117/74 97 Room Air (1) Pancreatitis Acute pancreatitis complication: no infection or necrosis Chronicity: acute Pancreatitis type: unspecified pancreatitis type Qualified Code(s): K85.90 - Acute pancreatitis without necrosis or infection, unspecified
--- NOTE | 2023-04-21 09:15 | Discharge Summary ---
Date of Service April 21, 2023 Admission HPI Per Admitting Provider 47-year-old male with past medical history significant for obstructive sleep apnea on CPAP, hypertension, fatty liver, history of MRSA infection, seasonal allergies presents with epigastric abdominal pain started last night. Patient says last night woke up with epigastric abdominal pain 5-10 severity, no radiation. And today morning the pain continued and was not getting better so came to the ER. No nausea or vomiting. Denies any chest pain or shortness of breath. Had normal bowel movement today. He had food on Saturday and had 2 glasses of wine. Last night he had tomato soup and grilled cheese and 1 glass of wine. Denies any runny nose or sore throat. No cough. No headaches. Currently resting comfortable hemodynamic stable. Not had this kind of abdominal pain before. Past medical history. As mentioned above Past surgical history. Dental surgery Social history. . No smoking. Alcohol 2-4 drinks per week. No drug use. Family history. Father had atrial fibrillation. Neurological disorder. Mother had hyperlipidemia, hypertension. Maternal grandfather had cirrhosis. Paternal g grandmother had dementia. Paternal grandmother had peripheral vascular disease. Paternal grandfather had TIA. Admission Exam Per Admitting Provider General- Not in distress Head- atraumatic Eyes- PERRL. ENT- oropharynx clear Neck- supple, no JVD. Lungs- clear to auscultation no wheezing or crackles. Heart- regular rhythm; no murmur, no gallop. Abdomen- normal bowel sounds, soft, epigastric tenderness present. no distension. Extremities- no pretibial edema, no erythema seen. Neuro- alert, oriented x 3; PERRL, no facial palsy; no dysarthria; moves extremities. Skin- warm & dry Principal Diagnosis Acute pancreatitis Discharge Exam General- WD/WN in NAD Head- atraumatic Eyes- PERRL. ENT- oropharynx clear Neck- supple, no JVD. Lungs- clear to auscultation no wheezing or crackles. Heart- regular rhythm; no murmur, no gallop. Abdomen- normal bowel sounds, soft, epigastric tenderness present. no distension. Extremities- no erythema seen. moves extremities Neuro- alert, oriented x 3; PERRL, no facial palsy; no dysarthria; moves extremities. Skin- warm & dry Discharge Data Allergies Allergy/AdvReac Type Severity Reaction Status Date / Time bactrim Allergy Unknown Rash Uncoded 03/05/22 10:37 Consultations 04/19/23 19:58 ED Decision to Admit Stat 04/20/23 08:00 Consult Gastroenterology Routine Ordered Studies 04/19/23 17:14 CT abd pelvis IV con only Stat FINDINGS: Lower chest: No acute abnormality. Liver: Unremarkable. No focal lesions are seen. Gallbladder and biliary tree: No calcified gallstones. Normal caliber wall. No intra- or extrahepatic biliary ductal dilation. Pancreas: There is questionable minimal heterogeneity of the pancreatic head. Soft tissue stranding is seen about the pancreatic head but not the body or tail. Spleen: Unremarkable. Adrenals: Unremarkable. Kidneys and ureters: Unremarkable. Bladder: Unremarkable. Reproductive organs: Unremarkable. Bowel: The appendix is normal. Duodenal wall thickening is seen. Lymph nodes Retroperitoneal: Subcentimeter lymph nodes are noted. Pelvic: Unremarkable. Mesenteric: Unremarkable. Peritoneum: Fat stranding is seen in the right upper quadrant extending around the splenic flexure, duodenum, and pancreatic head. No drainable fluid collections are seen. No pneumoperitoneum. Vessels: Atherosclerotic calcifications are seen. Abdominal wall: Unremarkable. Bones: Degenerative changes in the visualized spine. IMPRESSION: Findings are compatible with history of pancreatitis with reactive duodenal wall thickening and fat stranding. No acute peripancreatic collections or necrosis is seen. Primary duodenitis is considered less likely. Hospital Course (1) Pancreatitis: 47-year-old male with past medical history significant for obstructive sleep apnea on CPAP, hypertension, fatty liver, history of MRSA infection, seasonal allergies presents with epigastric abdominal pain started last night and found to have pancreatitis Acute pancreatitis Elevated lipase in 800s - trended down CT scan findings compatible with pancreatitis No gallstones on CAT scan LFTs okay except for ALT 66 Etiology unclear lipid profile obtained - TG 135, CH 154, LDL 80 Started on aggressive IV fluids LR@ 200 mill per hour -> decreased to 150 ml/hr N.p.o. -> advance to clear liquids -> low fat diet IV antiemetics as needed IV pain meds as needed GI consulted - plan for outpt EUS 6-8 weeks. 04/21 Pt feels much better, tolerating diet, pain is controlled. Plan for DC home and follow up w/ GI and PCP. Obstructive sleep apnea CPAP nightly Hypertension On losartan Will monitor Total Time Total Time Spent Total Time Spent (In Minutes): 40 Discharge Plan Discharge Items Patient Disposition: Home - Self-Care Reason For Visit: PANCREATITIS Discharge Diagnosis: Acute pancreatitis Condition on Discharge: Good Activity: Per Instructions section Non-emergency contact: Primary Care Provider Call non-emergency contact if: you have any medication questions and your symptoms worsen Follow-up/Referrals: Jose Carlos Bermudez MD [Primary Care Provider] - Diet: Low Fat Addtl Attending Provider Instructions: Follow up with primary care physician and gastroenterology. Recommend to follow up with primary care doctor within 1 week. Slowly advance your diet as tolerated. Per GI, recommend EUS in 6-8 weeks. Recommend to hold losartan for next day or two and if able, check your blood pressure at home. Pending Studies at Discharge: No Stand-Alone Forms: My [employer], Smoking Cessation Medications and DC Order Prescriptions: New oxycodone 5 mg tablet 5 mg PO TID PRN (Reason: pain) Qty: 5 0RF Continued fexofenadine 180 mg tablet 180 mg PO PRN (DME) Auto Titrating CPAP Misc .Route Qty: 1 0RF Rx Instructions: 5 to 15 cm of water, mask fit to patient comfort, heated humidification, compliance download capabilities, DME: [facility] doxycycline hyclate 100 mg capsule 100 mg PO DIRECTED PRN (Reason: Other) Patient Comments: has for when he goes hunting incase he gets bit by tick Metamucil Packet 1 packet PO DIRECTED Held losartan 100 mg tablet 100 mg PO QAM Hold Instructions: Resume on 04/23/23. Discharge Orders: Discharge Order (Routine); Ordered 04/21/23 Ordered By: Darryl Luz/Other Patient Handouts: Understanding Pancreatitis Admission Data Admit Date/Time: 04/19/23 21:01 Attending Provider: Darryl Dasilva Admit Provider: Eldon Velazquez Primary Care Provider: Jose Carlos Bermudez Other Providers: Hollie Kellogg; Enrique Gentile; Brooke Ivey; Ashleigh Vicente; Gilda Denton; Chris Silva; Jose Miguel Yousif; Rajesh Lentz; Abdias Rincon; Marvin Younger,Valentino S.; Alberta Kilgore; Jennifer Murillo; Nuria Mckeon; Yuni Kilpatrick; Marc Jade; Honorio Vaughn; Asael Phillips; Denise Harrington; Marie Matthew Jr; Eldon Velazquez
== END 2023-04-21 10:13 | disposition home or self-care (01) | DRG 440 ==
LOC: ED 15:29 → 3E 21:01